=== PATIENT | female | born 1945 | race Caucasian/White ===

== ENCOUNTER 2020-03-02 09:59 | Outpatient (REF) | payer MEDICARE, SELFPAY ==
[2020-03-02 11:36] LABS: Cholesterol 143 mg/dL; HDL Cholesterol 46 mg/dL; LDL Cholesterol Calculated 76 mg/dl; Triglycerides 106 mg/dL
[2020-03-02 12:01] LABS: Free T4 (Free Thyroxine) 1.08 ng/dL (0.71-1.85); Thyroid Stimulating Hormone 4.04 uIU/mL (0.32-4.0)
== END 2020-03-02 10:00 | disposition home or self-care (01) ==
LOC: HO.HMGCLDS 09:59
PROVIDERS: PCP Internal Medicine; Visit Provider Physician Assistant
DX: E78.00 Pure hypercholesterolemia, unspecified (principal); E03.9 Hypothyroidism, unspecified
CPT/HCPCS: 80061; 84439; 84443

== ENCOUNTER → 2020-07-04 13:57 | Outpatient (REF) | payer MEDICARE, SELFPAY ==
--- NOTE | 2020-07-04 14:00 | CA_ITS ---
Transthoracic Echocardiogram Patient (Last, First, Middle): Doris Yepez M Gender: Female Date of : 1945 Age: 74 Procedure Date: 07/04/2020 Procedure Type: Transthoracic Echocardiogram Location: OP Height: 162.56 cm Weight: 86.18 kg BSA: 1.91 m2 Heart Rate: bpm BP: 130 / 90 mmHg Skirt Maker: AYLEEN Referring MD: Lamont Pedersen MD Symptoms: I48.0 PAF, Z95.1 S/P ART BYPASS GRAFT, I25.10 ASCD Study Quality: Fair ECG Rhythm: Sinus Conclusions: - The left ventricular systolic function is normal. The visually estimated ejection fraction is between 55-60%. - Aortic valve sclerosis but no significant stenosis. - There is mild mitral annular calcification. Findings Left Ventricle Normal left ventricular cavity size. There is mildly increased left ventricular wall thickness. The left ventricular systolic function is normal. The visually estimated ejection fraction is between 55-60%. There is no evidence of regional wall motion abnormalities. E/E prime ratio is between 8 and 15 consistent with indeterminate filling pressures. Evidence suggests grade I (mild) diastolic dysfunction. Right Ventricle Normal right ventricular cavity size and systolic function. Atria The left atrium is mildly dilated. The right atrium is normal in size. Aortic Valve There is moderate calcification of the aortic valve. The peak aortic velocity is 2.14 m/s with a calculated peak gradient of 18 mmHg. The mean gradient is 9 mmHg. The aortic valve area is 2.01 cm2. There is no aortic valve regurgitation. No significant aortic stenosis. Mitral Valve There is mild mitral annular calcification. There is mild mitral valve regurgitation. There is no mitral valve stenosis. Pulmonic Valve The pulmonic valve was not well visualized. Tricuspid Valve Normal tricuspid valve structure. There is mild tricuspid valve regurgitation. The pulmonary artery systolic pressure is normal. Great Vessels The aortic annulus, sinuses of valsalva, and asc aorta are normal in size. Venous The inferior vena cava is normal in size and collapses greater than 50% with inspiration. Pericardium/Pleural There is no evidence of pericardial effusion. Prior Study Comparison No significant change compared to prior study dated: 12/25/2018. Measurements 2D Linear Measurements IVSd: 1.08 0.6-0.9/0.6-1.0 cm LVIDd: 4.82 3.9-5.3/4.2-5.9 cm LVIDd Index: 2.52 2.4-3.2/2.2-3.1 cm/m2 LVIDs: 3.15 2.0-3.6 cm LVPWd: 1.10 0.7-1.1 cm Ao Root: 3.30 2.1-3.5 cm LA Diam: 4.90 2.7-3.8/3.0-4.0 cm LAIDs Index: 2.57 1.5-2.3 cm/m2 LV Mass: 240.26 67-162/88-224 g LV Mass Index: 125.79 43-95/49-115 g/m2 LVOT Diam: 2.20 3.0+(-)1.3 cm 2D Systolic Function EF 4C: 55.20 >55% EF 2C: 54.70 >55% EF BiP: 55.90 >55% Mitral Valve MV Pk E: 1.09 MV PK A: 0.82 MV Decel Time: 223.00 E/A: 1.30 E'Lateral: 11.60 E'Medial: 7.72 E/E' Med: 14.10 E/E' Lat: 9.40 PHT: 65.00 MVA PHT: 3.38 Decel Davidson: 4.88 Aortic Valve AoV Pk Wesly: 2.14 AoV Mn Wesly: 1.41 AoV VTI: 0.48 AoV Pk Grad: 18.00 Aov Mn Grad: 9.00 KIKE Cont.VTI: 2.01 LVOT LVOT Pk Wesly: 1.12 LVOT Mn Wesly: 0.76 LVOT VTI: 0.25 LVOT Pk Grad: 5.00 LVOT Mn Grad: 3.00 LVOT Diam: 2.20 LVOT Area: 3.80 Diastolic Function MV Pk E: 1.09 MV Pk A: 0.82 E/A: 1.30 E'Medial: 7.72 E/E' Med: 14.10 E' Laterial: 11.60 E/E' Lat: 9.40 Tricuspid Valve TR Pk Wesly: 2.38 TR Pk Grad: 23.00 RA Press: 3.00 RVSP: 26.00 Great Vessels Aorta Ao Root-2D: 3.30 2.0-3.7 cm Ao Asc: 3.70 2.1-3.4 cm Ao Arch: 3.30 Updated in Other Vendor System with Status of Final Lamont Pedersen MD electronically signed on 07/05/2020 11:37:08 AM with status of Final
== END ==
LOC: HO.CARD 13:57
PROVIDERS: Visit Provider Internal Medicine
DX: I25.10 Atherosclerotic heart disease of native coronary artery without angina pectoris (principal); I48.0 Paroxysmal atrial fibrillation; Z95.1 Presence of aortocoronary bypass graft
CPT/HCPCS: 93306

== ENCOUNTER → 2020-07-25 12:19 | Outpatient (BNVA) | payer MEDICARE, SELFPAY | PROVIDERS: PCP Internal Medicine; Visit Provider Internal Medicine | DX: I25.10 Atherosclerotic heart disease of native coronary artery without angina pectoris (principal); I10 Essential (primary) hypertension; Z95.1 Presence of aortocoronary bypass graft; E78.5 Hyperlipidemia, unspecified | CPT/HCPCS: 93005; 99212 ==

== ENCOUNTER 2020-12-23 08:31 | Outpatient (REF) | payer MEDICARE, SELFPAY ==
[2020-12-23 12:00] LABS: Cholesterol 144 mg/dL; HDL Cholesterol 50 mg/dL; LDL Cholesterol Calculated 72 mg/dl; Triglycerides 111 mg/dL
== END 2020-12-23 08:32 | disposition home or self-care (01) ==
LOC: HO.HMGCLDS 08:31
PROVIDERS: PCP Internal Medicine; Visit Provider Physician Assistant
DX: E78.00 Pure hypercholesterolemia, unspecified (principal); E03.9 Hypothyroidism, unspecified
CPT/HCPCS: 36415; 80061; 84443

== ENCOUNTER 2021-02-06 14:58 | Outpatient (REF) | payer MEDICARE, SELFPAY ==
--- NOTE | ~2021-02-06 | MM_ITS ---
EXAMINATION: MM SCREENING DIGITAL BREAST TOMOSYNTHESIS, BILATERAL CLINICAL INFORMATION: Screening. Asymptomatic. The lifetime risk of breast cancer based on the Tyrer-Cuzick Model is 3%. COMPARISON: Mammography: 05/16/2018, 02/17/2016, 08/16/2015, 01/11/2015 TECHNIQUE: Digital breast tomosynthesis is performed in both the craniocaudal and mediolateral oblique views along with computer-aided detection (CAD). Synthesized 2D images are generated from the tomosynthesis. Additional right CC view is provided. FINDINGS: There are scattered areas of fibroglandular density (ACR BI-RADS breast composition Category b). Parenchymal pattern is similar to prior exams. There is small stable nodular density central outer left breast on CC view. Intramammary node again seen posterior upper outer right breast. There is no architectural abnormality. No dominant mass or abnormal calcifications. The axilla and skin contours are unremarkable. MM/MM tomosynthesis screening BI IMPRESSION: No mammographic evidence of malignancy. ASSESSMENT: BI-RADS 2: Benign RECOMMENDATION: Routine annual mammography screening. This patient's information was entered into a reminder system with a target due date for their next mammogram.
== END 2021-02-06 14:59 | disposition home or self-care (01) ==
LOC: HO.MAMMO 14:58
PROVIDERS: Visit Provider Internal Medicine
DX: Z12.31 Encounter for screening mammogram for malignant neoplasm of breast (principal)
CPT/HCPCS: 77063; 77067

== ENCOUNTER → 2021-08-01 11:02 | Outpatient (BNVA) | payer MEDICARE, SELFPAY | PROVIDERS: PCP Internal Medicine; Visit Provider Internal Medicine | DX: I25.10 Atherosclerotic heart disease of native coronary artery without angina pectoris (principal); I10 Essential (primary) hypertension; I35.9 Nonrheumatic aortic valve disorder, unspecified; I05.9 Rheumatic mitral valve disease, unspecified; E78.5 Hyperlipidemia, unspecified | CPT/HCPCS: 93005; 99212 ==

== ENCOUNTER 2022-02-19 09:53 | Emergency (ER) | payer MEDICARE, SELFPAY ==
--- NOTE | ~2022-02-19 | XR_ITS ---
EXAMINATION: XR CHEST CLINICAL INFORMATION: COVID, shortness of breath. COMPARISON: None TECHNIQUE: Frontal view of the chest was obtained. FINDINGS: The lungs are clear. There is mild elevation of the right hemidiaphragm. The heart and mediastinal structures are unremarkable. Multilevel sternotomy wires are intact. XR/XR chest 1V IMPRESSION: No acute cardiopulmonary process.
[2022-02-19 10:00] VITALS: BP 142/71; PULSE 80; RESP 14; TEMP 36.4; O2SAT 95; BMI 29.9
--- NOTE | 2022-02-19 11:13 | ED.GENADULT ---
HPI - General Adult General Chief complaint: Upper Respiratory Symptoms Stated complaint: COVID + HEADACHE FEVER Time Seen by Provider: 02/19/22 11:12 Source: patient Mode of arrival: ambulatory Limitations: no limitations History of Present Illness HPI narrative: Patient is a 76 year old assigned female at with a history of HTN presenting to the emergency department today feeling generally unwell post a COVID-19 infection. Patient states that she began having COVID-19 symptoms over 13 days ago and had a positive test. Patient states that she still feels generally unwell and so she thought she should come be evaluated. Patient states that she doesn't have any one specific complaint. Patient denies any dizziness, lightheadedness, abdominal pain, nausea, vomiting, fever, chills, blurry vision, double vision, loss of vision, chest pain, difficulty breathing, shortness of breath, back pain, night sweats, pain with urination, increased urinary frequency, increased urinary urgency, blood in her urine or stool, syncope or a near syncopal episode, recent trauma or falls, bowel incontinence, bladder incontinence, bowel retention, bladder retention, or any other complaints at this time. Related Data Home Medications Medication Instructions Recorded Confirmed aspirin 81 mg tablet,delayed 81 mg PO DAILY 07/25/20 08/01/21 release cholecalciferol (vitamin D3) 50 50 mcg PO DAILY 07/25/20 08/01/21 mcg (2,000 unit) capsule levothyroxine 75 mcg tablet 75 mcg PO DAILY 07/25/20 08/01/21 lisinopril 40 mg tablet 40 mg PO DAILY 07/25/20 08/01/21 metoprolol succinate 50 mg 50 mg PO DAILY 07/25/20 08/01/21 tablet,extended release 24 hr turmeric 400 mg capsule mg PO 07/25/20 08/01/21 Previous Rx's Medication Instructions Recorded amlodipine 5 mg tablet 5 mg PO DAILY #90 tabs 11/17/21 rosuvastatin 40 mg tablet 40 mg PO DAILY 90 days #90 tabs 12/26/21 doxycycline hyclate 100 mg tablet 100 mg PO BID 7 days #14 tabs 02/19/22 prednisone 20 mg tablet 20 mg PO DAILY 12 days #26 tabs 02/19/22 Allergies Allergy/AdvReac Type Severity Reaction Status Date / Time No Known Allergies Allergy Verified 04/19/22 11:16 Review of Systems Constitutional: Constitutional: Reports no additional constitutional complaints, Denies chills, Denies fever(s) and Denies night sweats Eyes: Eyes: Reports no additional eye complaints, Denies blurry vision, Denies change in vision, Denies diplopia, Denies eye discharge, Denies loss of vision and Denies eye pain ENT: Denies dizziness Cardiovascular: Cardiovascular: Reports no additional cardiovascular complaints, Denies chest pain, Denies lightheadedness, Denies Loss of Consciousness and Denies dyspnea Respiratory: Respiratory: Reports no additional respiratory complaints and Denies dyspnea Gastrointestinal: Gastrointestinal: Reports no additional gastrointestinal complaints, Denies abdominal pain, Denies melena, Denies hematochezia, Denies change in bowel habits and Denies change in stool character Genitourinary: Genitourinary: Denies hematuria, Denies urinary frequency, Denies dysuria, Denies urinary incontinence, Denies urinary hesitancy and Denies urinary urgency Musculoskeletal: Musculoskeletal: Reports no additional musculoskeletal complaints, Denies numbness and Denies tingling Neurologic: Denies dizziness, Denies loss of vision, Denies numbness and Denies tingling Psychiatric: Psychiatric: Reports no additional psychiatric complaints Endocrine: Endocrine: Reports no additional endocrine complaints Hematologic/Lymphatic: Hematologic/Lymphatic: Reports no additional hematologic/lymphatic complaints Allergic/Immunologic: Allergic/Immunologic: Reports no additional allergic/immunologic complaints [facility] Past Medical History Attestation statement: The following information was validated with the patient. Source: old records reviewed Medical History Atherosclerotic cardiovascular disease Essential hypertension Other and unspecified hyperlipidemia Surgical History History of coronary artery bypass graft (~10/2018) Family History Family History Father No problems noted. Mother No problems noted. Social History Social History Patient Tobacco Use Status: Never used Tobacco Smoked in Last 30 Days: No Advance Directives: No Advance Directives Information Provided: Yes Physical Exam ED Vital Signs: Vital Signs - 24 hr 02/19/22 10:00 Temperature 97.5 F Pulse Rate 80 Respiratory Rate 14 Blood Pressure 142/71 H Pulse Oximetry 95 Oxygen Delivery Method Room Air BMI result Body Mass Index 29.9 Const General: cooperative, no acute distress, alert and awake Nutritional Appearance: well nourished Orientation/consciousness: patient oriented x3 Limitations: no limitations HENMT Head: Yes normal to inspection and Yes atraumatic Ears: hearing grossly normal bilaterally and external ears normal General nose exam: Normal external nose present, no nasal discharge noted and no epistaxis Face and sinus: Yes normal facial exam, No abrasion and No laceration Mouth: Normal oral and palatal mucosa present, no drooling and no muffled voice Eyes General: appearance normal, both eyes and all related structures Periorbital: periorbital findings normal Eyelids: Yes eyelids normal Conjunctivae: conjunctivae normal Pupils: Equal, round and reactive pupils present EOM: EOMs intact bilaterally Neck Neck: Yes normal visual inspection, Yes full ROM and Yes no lymphadenopathy Chest Chest palpation & inspection: normal inspection of the chest Resp Effort & Inspection: normal respiratory effort and able to speak in complete sentences Auscultation: clear to auscultation bilaterally Cardio Rate: regular rate Rhythm: regular rhythm GI Inspection: Yes normal to inspection Neuro General: patient oriented x3 and moves all extremities Cranial nerves: Yes Equal, round and reactive pupils present Cognition (Neuro): normal cognition Motor exam (neuro): 5/5 motor strength present throughout Sensory Exam: Normal double simultaneous stimulation for sensation Coordination: [id number] test normal Extrem General: Yes normal to inspection, Yes full ROM and Yes capillary refill normal Psych Appearance: grossly normal Mental Status: mental status grossly normal Affect: normal affect Attitude: cooperative Thought process: Normal thought process present Thought content: Normal thought content present Insight: Good insight present (Psych) Medical Decision Making [facility] Narrative Medical decision making narrative: Patient is a 76 year old assigned female at with a history of HTN presenting to the emergency department today feeling generally unwell. Patient's physical exam was unremarkable. Patient's chest x-ray showed no acute process. I explained my physical exam findings as well as all test results to the patient. I answered all questions asked by the patient. I stressed the importance of the patient taking her medication as prescribed. I stressed the importance of the patient following up with her primary care provider. I stressed the importance of the patient returning to the emergency department immediately if her symptoms were to worsen or if she were to develop any dizziness, shortness of breath, difficulty breathing, chest pain, blurry vision, loss of vision, nausea, vomiting, abdominal pain, fever, chills, back pain, or any other complaints. Patient verbalized agreement and understanding with this treatment plan and discharge. Medical Records Medical records reviewed: Yes I reviewed the patient's medical records. Imaging Data Chest x-ray: Attestation: I personally reviewed and interpreted this imaging study as follows: My impression: No acute process. Radiologist's impression: EXAMINATION: XR CHEST CLINICAL INFORMATION: COVID, shortness of breath. COMPARISON: None TECHNIQUE: Frontal view of the chest was obtained. FINDINGS: The lungs are clear. There is mild elevation of the right hemidiaphragm. The heart and mediastinal structures are unremarkable. Multilevel sternotomy wires are intact. XR/XR chest 1V IMPRESSION: No acute cardiopulmonary process. Dictated By: Guevara Campa MD Signed By: Electronically signed by Guevara Campa MD 02/19/22 1108 Discharge Plan Discharge Clinical Impression: Upper respiratory infection Patient Disposition: Home, Self-Care Additional Instructions: Follow up with your primary care provider. Return to the emergency department immediately if your symptoms worsen or if you develop any dizziness, shortness of breath, difficulty breathing, chest pain, blurry vision, loss of vision, nausea, vomiting, abdominal pain, fever, chills, back pain, or any other complaints. Prescriptions: New prednisone 20 mg tablet 20 mg PO DAILY 12 Days Qty: 26 0RF Rx Instructions: Take 3 tablets for 5 days THEN; Take 2 tablets for 4 days THEN; Take 1 tablet for 3 days doxycycline hyclate 100 mg tablet 100 mg PO BID 7 Days Qty: 14 0RF No Action amlodipine 5 mg tablet 5 mg PO DAILY Qty: 90 3RF rosuvastatin 40 mg tablet 40 mg PO DAILY 90 Days Qty: 90 3RF lisinopril 40 mg tablet 40 mg PO DAILY levothyroxine 75 mcg tablet 75 mcg PO DAILY metoprolol succinate 50 mg tablet extended release 24 hr 50 mg PO DAILY aspirin 81 mg tablet,delayed release (DR/EC) 81 mg PO DAILY cholecalciferol (vitamin D3) 50 mcg (2,000 unit) capsule 50 mcg PO DAILY turmeric 400 mg capsule PO Referrals: Rainer Costa MD [Primary Care Provider] - Discharge Date/Time: 02/19/22 12:35 Print Language: French
--- NOTE | 2022-02-19 12:35 | PC.NURSE ---
patient discharged by provider . patient aware of plan of care .
== END 2022-02-19 12:35 | disposition home or self-care (01) ==
PROVIDERS: Emergency Provider Emergency Medicine; PCP Internal Medicine
DX: J06.9 Acute upper respiratory infection, unspecified (principal); E78.5 Hyperlipidemia, unspecified; I10 Essential (primary) hypertension; Z79.02 Long term (current) use of antithrombotics/antiplatelets; Z79.899 Other long term (current) drug therapy
CPT/HCPCS: 71045; 99283; 99284

== ENCOUNTER → 2022-08-07 10:50 | Outpatient (BNVA) | payer MEDICARE, SELFPAY | PROVIDERS: PCP Internal Medicine; Referring Provider Internal Medicine; Visit Provider Internal Medicine | DX: I25.10 Atherosclerotic heart disease of native coronary artery without angina pectoris (principal); I10 Essential (primary) hypertension; I35.9 Nonrheumatic aortic valve disorder, unspecified; I05.9 Rheumatic mitral valve disease, unspecified; E78.5 Hyperlipidemia, unspecified | CPT/HCPCS: 93005; 99212 ==

== ENCOUNTER 2023-02-27 08:59 | Outpatient (REF) | payer MEDICARE, SELFPAY ==
[2023-02-27 11:20] LABS: MANUAL DIFF FLAG NO
[2023-02-27 11:55] LABS: Alanine Aminotransferase 14 U/L (0-31); Alkaline Phosphatase 76 U/L (39-117); Anion Gap 10 (12-20); Aspartate Amino Transferase 19 U/L (5-31); Bilirubin Total 0.6 mg/dL (0.0-1.0); Blood Urea Nitrogen 10 mg/dL (9-16); Calcium 9.1 mg/dL (8.4-10.2); Carbon Dioxide 25 mmol/L (22-29); Chloride 109 mmol/L (96-108); Cholesterol 159 mg/dL (<200); Estimated Glomerular Filt Rate > 60; Glucose Random 93 mg/dL (60-115); HDL Cholesterol 49 mg/dL (>40); LDL Cholesterol Calculated 92 mg/dL (<100); Sodium 140 mmol/L (135-145); Total Protein 7.1 g/dL (6.5-8.0); Triglycerides 90 mg/dL (<150)
[2023-02-27 12:03] LABS: Basophils Absolute Auto 0.1 X10*3/uL (0.0-0.2); Eosinophils Absolute Auto 0.1 X10*3/uL (0.0-0.4); Eosinophils Percent Auto 2.1 % (0-4); Hematocrit 43.3 % (37.0-47.0); Hemoglobin 13.7 g/dl (12.0-16.0); Imm Gran Abs Auto 0.03 X10*3/uL (0.00-0.03); Imm Gran Pct Auto 0.4 % (0.0-0.4); Lymphocytes Absolute Auto 2.3 X10*3/uL (1.2-4.9); Lymphocytes Percent Auto 34.6 % (20-40); Mean Corpuscular HGB Conc 31.6 g/dl (31.0-35.0); Mean Corpuscular Hemoglobin 28.8 pg (27.0-33.0); Mean Corpuscular Volume 91.2 fL (80.0-98.0); Mean Platelet Volume 10.6 fL (9.4-12.3); Monocytes Absolute Auto 0.7 X10*3/uL (0.1-1.2); Monocytes Percent Auto 9.7 % (2-11); Neutrophils Absolute Auto 3.5 x10*3/uL (2.0-8.3); Neutrophils Percent Auto 52.2 % (45-73); Platelet Count 284 X10*3/uL (160-400); Red Blood Count 4.75 X10*6/uL (4.20-5.50); Red Cell Distribution Width 12.8 % (11.0-16.0); White Blood Count 6.7 X10*3/uL (4.8-10.8)
== END 2023-02-27 09:00 | disposition home or self-care (01) ==
LOC: HO.HMGCLDS 08:59
PROVIDERS: PCP Internal Medicine; Visit Provider Physician Assistant
DX: I25.119 Atherosclerotic heart disease of native coronary artery with unspecified angina pectoris (principal)
CPT/HCPCS: 36415; 80053; 80061; 85025

== ENCOUNTER 2023-08-08 09:44 | Outpatient (AMB) | payer MEDICARE, SELFPAY ==
--- NOTE | 2023-08-08 10:00 | A.OFFVIS_ITS ---
Vital Signs 08/08/23 10:01 Height 5 ft 5 in Weight 194 lb 0.108 oz BMI 32.3 BP 138/70 Blood Pressure Location Lt brachial Position Sitting Pulse 65 Pulse Source Monitor Pulse Oximetry (%) 98 Oxygen Delivery Method Room Air Intake Visit Reasons: 1 yr f/up Allergies No Known Allergies Allergy (Verified 08/07/22 11:01) Medication List - Last Reconciled 08/08/23 by Lamont Pedersen MD amlodipine 5 mg PO DAILY aspirin 81 mg PO DAILY cholecalciferol (vitamin D3) 50 mcg PO DAILY levothyroxine 75 mcg PO DAILY lisinopril 40 mg PO DAILY metoprolol succinate ER 50 mg PO DAILY rosuvastatin 40 mg PO DAILY 90 days turmeric mg PO HPI Comments Details: Doris returns for follow-up regarding coronary disease and coronary artery bypass surgery. Overall, she is doing good. No complaints like angina or shortness of breath or in fact anything cardiac sounding. Getting along fine. [facility] Medical History Atherosclerotic cardiovascular disease Essential hypertension Other and unspecified hyperlipidemia Surgical History History of coronary artery bypass graft (~10/2018) Family History Father No problems noted. Mother No problems noted. Social History (Updated 08/07/22 @ 11:03 by Thu Le) Alcohol intake: current Alcohol intake frequency: holidays/special occasions only Alcohol type: wine Patient Tobacco Use Status: Never used Tobacco Review of Systems Const Denies weakness ENT Denies dizziness Card Denies chest pain, Denies chest pain with activity, Denies syncope, Denies rapid heart rate, Denies pedal edema, Denies edema, Denies leg edema, Denies lightheadedness, Denies palpitations, Denies dyspnea, Denies dyspnea on exertion and Denies orthopnea Resp Denies cough, Denies dyspnea and Denies dyspnea on exertion GI Denies hematochezia and Denies change in stool character Musc Denies abnormal gait, Denies muscle cramps, Denies muscle weakness, Denies numbness, Denies radiating pain into limb and Denies tingling Neuro Denies abnormal gait, Denies dizziness, Denies syncope, Denies numbness, Denies tingling and Denies weakness Endo Denies palpitations Physical Exam Vital Signs: Last Vital Signs Pulse 65 08/08/23 10:01 BP 138/70 08/08/23 10:01 Pulse Ox 98 08/08/23 10:01 Oxygen Delivery Method Room Air 08/08/23 10:01 BMI result Body Mass Index 32.3 Const General: comfortable and no acute distress Orientation/consciousness: patient oriented x3 HEENT Other: Unremarkable Head: Yes normal to inspection Neck Neck: Yes normal visual inspection Chest Chest palpation & inspection: normal inspection of the chest Resp Auscultation: clear to auscultation bilaterally Cardio Palpation: normal PMI Heart sounds: S1 normal heart sound present, S2 normal heart sound present, no gallops, no murmurs and no rubs GI Palpation (GI): Soft to palpation Back/Spine/Pelvis Other: unremarkable Skin General skin exam: no rashes or lesions noted Neuro General: patient oriented x3 Extrem General: Yes normal to inspection Psych Mental Status: mental status grossly normal Office Procedures EKG Details: EKG shows sinus rhythm at 65/Min; IN prolongation to 212 millisecond; [place]. [id number], Complete Assessment & Plan Assessment & Plan (1) Atherosclerotic cardiovascular disease: Code(s): I25.10 - Atherosclerotic heart disease of [place] coronary artery without angina pectoris Category: Medical Plan: Continue aspirin, beta-blockers and high-dose statins. (2) Essential hypertension: Code(s): I10 - Essential (primary) hypertension Category: Medical Plan: Listed to be on metoprolol, lisinopril, amlodipine. Stable. (3) Other and unspecified hyperlipidemia: Code(s): E78.5 - Hyperlipidemia, unspecified Category: Medical Plan: Last LDL 92 mg/dL. Slightly higher than before but she is also gained some weight. We can recheck. Currently on Rosuvastatin. Possibly may add Zetia based on the levels. (4) Aortic valve calcification: Code(s): I35.9 - Nonrheumatic aortic valve disorder, unspecified Category: Medical Plan: She does have aortic valve sclerosis. There is risk of developing aortic stenosis in the future. Echocardiogram in the future as needed. (5) Mitral annular calcification: Code(s): I05.9 - Rheumatic mitral valve disease, unspecified Category: Medical Plan: Mild mitral annular calcification on the last echocardiogram with mild regurgitation but no stenosis. Can be followed with echocardiograms as needed. Plan Follow-up in 1 year. She will call us with concerns. Orders: Orders Lipid Panel Today E78.5 - Hyperlipidemia, unspecified Liver Panel Today E78.5 - Hyperlipidemia, unspecified, I25.10 - Atherosclerotic heart disease of [place] coronary artery without angina pectoris Coding Level of Care Code Est Pt Level 4 (39211) Diagnoses Atherosclerotic cardiovascular disease I25.10 Essential hypertension I10 Other and unspecified hyperlipidemia E78.5 Aortic valve calcification I35.9 Mitral annular calcification I05.9 CPT Codes EKG - CPT: 01346-[id number], Complete ([id number])
[2023-08-08 10:01] VITALS: BP 138/70; PULSE 65; O2SAT 98; BMI 32.3
== END 2023-08-08 10:18 | disposition home or self-care (01) ==
PROVIDERS: PCP Internal Medicine; Visit Provider Internal Medicine
DX: I25.10 Atherosclerotic heart disease of native coronary artery without angina pectoris (principal); I10 Essential (primary) hypertension; E78.5 Hyperlipidemia, unspecified; I35.9 Nonrheumatic aortic valve disorder, unspecified; I05.9 Rheumatic mitral valve disease, unspecified
CPT/HCPCS: 93010; 99214

== ENCOUNTER → 2023-08-08 09:44 | Outpatient (BNVA) | payer MEDICARE, SELFPAY | PROVIDERS: Visit Provider Internal Medicine | DX: I25.10 Atherosclerotic heart disease of native coronary artery without angina pectoris (principal); I10 Essential (primary) hypertension; E78.5 Hyperlipidemia, unspecified; I35.9 Nonrheumatic aortic valve disorder, unspecified; I05.9 Rheumatic mitral valve disease, unspecified; Z79.82 Long term (current) use of aspirin; Z79.899 Other long term (current) drug therapy | CPT/HCPCS: 93005; 99212 ==

== ENCOUNTER 2023-12-23 08:24 | Outpatient (REF) | payer MEDICARE, SELFPAY ==
[2023-12-23 10:49] LABS: Alanine Aminotransferase 19 U/L (0-31); Alkaline Phosphatase 69 U/L (39-117); Aspartate Amino Transferase 17 U/L (5-31); Bilirubin Direct 0.2 mg/dL (0.0-0.5); Bilirubin Total 0.6 mg/dL (0.0-1.0); Cholesterol 156 mg/dL (<200); HDL Cholesterol 52 mg/dL (>40); LDL Cholesterol Calculated 88 mg/dL (<100); Total Protein 7.1 g/dL (6.5-8.0); Triglycerides 80 mg/dL (<150)
== END 2023-12-23 08:25 | disposition home or self-care (01) ==
LOC: HO.HMGCLDS 08:24
PROVIDERS: PCP Internal Medicine; Visit Provider Internal Medicine
DX: E78.5 Hyperlipidemia, unspecified (principal); I25.10 Atherosclerotic heart disease of native coronary artery without angina pectoris
CPT/HCPCS: 36415; 80061; 80076

== ENCOUNTER 2024-04-20 13:40 | Outpatient (AMB) | payer MEDICARE, SELFPAY ==
[2024-04-20 13:52] VITALS: BP 110/62; PULSE 71; BMI 32.1
--- NOTE | 2024-04-20 13:52 | A.OFFVIS_ITS ---
Vital Signs 04/20/24 13:52 Height 5 ft 5 in Weight 193 lb 1.999 oz BMI 32.1 BP 110/62 Blood Pressure Location Lt brachial Position Sitting Pulse 71 Pulse Source Monitor Intake Visit Reasons: ABN Ekg. Ok per [place] [employer] Chair Required: No Accompanied by: Self / Same As Patient Allergies No Known Allergies Allergy (Verified 04/20/24 14:20) Medication List - Last Reconciled 04/20/24 by Alexy Georges NP amlodipine 10 mg PO DAILY aspirin 81 mg PO DAILY cholecalciferol (vitamin D3) 50 mcg PO DAILY ezetimibe (Zetia) 10 mg PO DAILY levothyroxine 75 mcg PO DAILY lisinopril 40 mg PO DAILY metoprolol succinate ER 50 mg PO DAILY rosuvastatin 40 mg PO DAILY 90 days turmeric mg PO HPI Comments Details: This is a 78-year-old female with a history of hypertension, coronary artery disease, hyperlipidemia and coronary artery bypass in 2019. She was recently evaluated by her new primary care physician, who noted an abnormal EKG with T- wave inversions in V3. Compared to prior office EKGs, there were no significant changes. However due to her medical history and complaints of chest pain at her visit, she was brought in for an earlier appointment. The patient describes her chest pain as a pressure in the midsternum, rated 5 to 6/10 in intensity, lasting a few seconds. 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 Additionally, the patient reports intermittent shortness of breath with exertion as well as with rest, which is not associated with the chest pain. Patient is teary today, having recently experienced the loss of her partner. Otherwise, she denies any dizziness, palpitations, presyncope, or syncope. [facility] Medical History Atypical chest pain Other and unspecified hyperlipidemia Essential hypertension Atherosclerotic cardiovascular disease Surgical History History of coronary artery bypass graft (~10/2018) Family History Father No problems noted. Mother No problems noted. Social History Alcohol intake: current Alcohol intake frequency: holidays/special occasions only Alcohol type: wine Patient Tobacco Use Status: Never used Tobacco Review of Systems Const Denies chills, Denies fatigue, Denies fever(s), Denies frequent falls, Denies weakness, Denies weight gain and Denies weight loss ENT Denies dizziness Card Denies chest pain, Denies leg edema, Denies lightheadedness, Denies palpitations, Denies dyspnea and Denies dyspnea on exertion Resp Denies cough, Denies dyspnea and Denies dyspnea on exertion GI Denies hematochezia Musc Denies abnormal gait, Denies muscle weakness, Denies numbness, Denies radiating pain into limb and Denies tingling Neuro Denies abnormal gait, Denies dizziness, Denies frequent falls, Denies numbness, Denies tingling and Denies weakness Endo Denies fatigue and Denies palpitations Physical Exam Vital Signs: Last Vital Signs Pulse 71 04/20/24 13:52 BP 110/62 04/20/24 13:52 BMI result Body Mass Index 32.1 Const General: cooperative, healthy appearing, comfortable and no acute distress Orientation/consciousness: patient oriented x3 HEENT Head: Yes normal to inspection Neck Neck: Yes normal visual inspection, Yes trachea midline and Yes supple Chest Chest palpation & inspection: normal inspection of the chest Resp Effort & Inspection: normal respiratory effort Auscultation: clear to auscultation bilaterally, no crackles, no rales, no rhonchi and no wheezes Cardio Jugular venous distension: no JVD Palpation: normal PMI Rate: regular rate Rhythm: regular rhythm Heart sounds: S1 normal heart sound present, S2 normal heart sound present, no click, no gallops, no murmurs and no rubs Peripheral pulses: Peripheral pulses 2+ throughout GI Inspection: Yes normal to inspection Palpation (GI): Soft to palpation Auscultation: normal bowel sounds Skin General skin exam: no rashes or lesions noted Neuro General: patient oriented x3 Extrem General: Yes normal to inspection, No no pedal edema and No calf tenderness Psych Appearance: grossly normal Mental Status: mental status grossly normal Speech and movement: Normal speech and movement present Affect: Sad affect present Office Procedures EKG Details: EKG today showed normal sinus rhythm at 71 beats per minute, right axis deviation, nonspecific T-wave abnormalities, [place], [place]. [id number], Complete Assessment & Plan Assessment & Plan (1) Atypical chest pain: Code(s): R07.89 - Other chest pain Category: Medical Plan: Given her history of CAD and CABG, concerning. We will evaluate the patient for any ischemic changes with myocardial perfusion study. EKG today is as noted above. (2) Atherosclerotic cardiovascular disease: Code(s): I25.10 - Atherosclerotic heart disease of [place] coronary artery without angina pectoris Category: Medical Plan: Continue aspirin, beta-blockers, high-dose statins and Zetia Discussed heart healthy diet, exercise, weight management, and stress medication strategies. (3) Essential hypertension: Code(s): I10 - Essential (primary) hypertension Category: Medical Plan: Patient states her PCP recently increased amlodipine to 10 mg daily for elevated blood pressures. Blood pressure today is well managed. Continue on amlodipine, lisinopril, metoprolol. (4) Other and unspecified hyperlipidemia: Code(s): E78.5 - Hyperlipidemia, unspecified Category: Medical Plan: Last LDL 88 mg/dL. Currently on Rosuvastatin and Zetia. We will repeat labs. (5) Aortic valve calcification: Code(s): I35.9 - Nonrheumatic aortic valve disorder, unspecified Category: Medical Plan: She does have aortic valve sclerosis. There is risk of developing aortic stenosis in the future. We will obtain echocardiogram. (6) Mitral annular calcification: Code(s): I05.9 - Rheumatic mitral valve disease, unspecified Category: Medical Plan: Mild mitral annular calcification on the last echocardiogram with mild regurgitation but no stenosis. Plan Patient will follow-up in 6 months. In the interim, advised patient to call the office or seek ER care in case of exertional chest pain and shortness of breath not resolving with rest, dizziness, palpitations, presyncope or syncope. This note was generated using voice recognition software. While every effort has been made to ensure accuracy and proper sprayer automatic spray machine, there may be occasional errors that could affect the content or meaning of the described symptoms. Orders: Orders NM cardiolite stress test Today Alexy Georges NP R07.89 - Other chest pain Liver Panel Today Alexy Georges NP E78.5 - Hyperlipidemia, unspecified CA lexiscan stress w mei Today Alexy Georges NP R07.89 - Other chest pain AMB EKG-In Office Today Alexy Georges NP R07.89 - Other chest pain CA echo transthoracic complete Today Alexy Georges NP I05.9 - Rheumatic mitral valve disease, unspecified, I35.9 - Nonrheumatic aortic valve disorder, unspecified Lipid Panel Today Alexy Georges NP E78.5 - Hyperlipidemia, unspecified Medications: Changed From amlodipine 5 mg PO DAILY 90 tabs 3RF To amlodipine 10 mg PO DAILY Angelic Luque NP Coding Level of Care Code Est Pt Level 4 (08036) Diagnoses Atypical chest pain R07.89 Atherosclerotic cardiovascular disease I25.10 Essential hypertension I10 Other and unspecified hyperlipidemia E78.5 Aortic valve calcification I35.9 Mitral annular calcification I05.9 CPT Codes EKG - CPT: 44980-[id number], Complete ([id number]) Time Spent (min) 31 Comment Time spent in reviewing the chart, test results, assessment, counseling and documentation.
== END 2024-04-20 14:26 | disposition home or self-care (01) ==
PROVIDERS: PCP Internal Medicine
DX: R07.89 Other chest pain (principal); I25.10 Atherosclerotic heart disease of native coronary artery without angina pectoris; I10 Essential (primary) hypertension; E78.5 Hyperlipidemia, unspecified; I35.9 Nonrheumatic aortic valve disorder, unspecified; I05.9 Rheumatic mitral valve disease, unspecified
CPT/HCPCS: 93010; 99214

== ENCOUNTER → 2024-04-20 13:40 | Outpatient (BNVA) | payer MEDICARE, SELFPAY | PROVIDERS: PCP Internal Medicine | DX: R07.89 Other chest pain (principal); I25.10 Atherosclerotic heart disease of native coronary artery without angina pectoris; I10 Essential (primary) hypertension; I35.9 Nonrheumatic aortic valve disorder, unspecified; I05.9 Rheumatic mitral valve disease, unspecified; E78.5 Hyperlipidemia, unspecified; R94.31 Abnormal electrocardiogram [ECG] [EKG] | CPT/HCPCS: 93005; 99212 ==

== ENCOUNTER 2024-04-21 07:28 | Outpatient (REF) | payer MEDICARE, SELFPAY ==
[2024-04-21 10:15] LABS: Alanine Aminotransferase 45 U/L (0-31); Albumin Level 3.9 g/dL (3.5-5.0); Alkaline Phosphatase 72 U/L (39-117); Aspartate Amino Transferase 48 U/L (5-31); Bilirubin Direct 0.3 mg/dL (0.0-0.5); Bilirubin Total 0.6 mg/dL (0.0-1.0); Cholesterol 128 mg/dL (<200); HDL Cholesterol 50 mg/dL (>40); LDL Cholesterol Calculated 57 mg/dL (<100); Triglycerides 105 mg/dL (<150)
== END 2024-04-21 07:29 | disposition home or self-care (01) ==
LOC: HO.HMGCLDS 07:28
DX: E78.5 Hyperlipidemia, unspecified (principal)
CPT/HCPCS: 36415; 80061; 80076

== ENCOUNTER → 2024-04-28 08:00 | Outpatient (REF) | payer MEDICARE, SELFPAY ==
--- NOTE | 2024-04-28 08:02 | CA_ITS ---
Transthoracic Echocardiogram Patient (Last, First, Middle): Doris Yepez M Gender: Female Date of : 1945 Age: 78 Procedure Date: 04/28/2024 Procedure Type: Transthoracic Echocardiogram Location: OP Height: 165.1 cm Weight: 87.54 kg BSA: 1.95 m2 Heart Rate: 73 bpm BP: 110 / 63 mmHg Agriculture Instructor: SB Referring MD: Alexy Georges NP Symptoms: I35.9 - Nonrheumatic aortic valve disorder, unspecified Study Quality: Adequate w contrast ECG Rhythm: Sinus Conclusions: - The left ventricular systolic function is normal. The calculated ejection fraction is 64% by biplane method. - There is severe calcification of the aortic valve. There is mild aortic valve stenosis. - There is moderate mitral annular calcification. Findings Procedure Information Contrast agent, definity, is being given per protocol without apparent complications. Left Ventricle Normal left ventricular cavity size. There is normal left ventricular wall thickness. The left ventricular systolic function is normal. The calculated ejection fraction is 64% by biplane method. There is no evidence of regional wall motion abnormalities. Diastolic function is indeterminate on the basis of available data. Right Ventricle Normal right ventricular cavity size. There is mildly decreased right ventricular systolic function. Atria The left atrium is mildly dilated. The right atrium is normal in size. Aortic Valve There is severe calcification of the aortic valve. There is mild aortic valve stenosis. There is trace (trivial) aortic valve regurgitation. Mitral Valve There is moderate mitral annular calcification. There is trace mitral valve regurgitation. There is no mitral valve stenosis. Pulmonic Valve The pulmonic valve is likely normal. Tricuspid Valve There is mild tricuspid valve regurgitation. There is no evidence of pulmonary hypertension. Great Vessels The asc aorta and aortic arch are normal in size. Venous The inferior vena cava is normal in size and collapses greater than 50% with inspiration. Pericardium/Pleural There is no evidence of pericardial effusion. Prior Study Comparison Changes noted compared to prior study dated: 07/04/2020. Mild aortic stenosis noted. Measurements 2D Linear Measurements IVSd: 0.90 0.6-0.9/0.6-1.0 cm LVIDd: 5.09 3.9-5.3/4.2-5.9 cm LVIDd Index: 2.61 2.4-3.2/2.2-3.1 cm/m2 LVIDs: 3.51 2.0-3.6 cm LVPWd: 0.72 0.7-1.1 cm LA Diam: 4.50 2.7-3.8/3.0-4.0 cm LAIDs Index: 2.31 1.5-2.3 cm/m2 LV Mass: 176.35 67-162/88-224 g LV Mass Index: 90.43 43-95/49-115 g/m2 LVOT Diam: 2.20 3.0+(-)1.3 cm 2D Systolic Function EF 4C: 61.30 >55% EF 2C: 67.40 >55% EF BiP: 64.00 >55% Mitral Valve MV VTI: 0.31 MV Pk Wes[place]: 1.04 MV Mn [place]: 0.61 MV Pk Grad: 4.00 MV Mn Grad: 2.00 MV Pk E: 1.12 MV PK A: 0.79 MV Decel Time: 211.00 E/A: 1.40 E'Lateral: 12.20 E'Medial: 5.33 E/E' Med: 21.00 E/E' Lat: 9.20 PHT: 62.00 MVA PHT: 3.55 MVA Continuity: 2.82 Decel [place]: 5.31 Aortic Valve AoV Pk [place]: 2.50 AoV Mn [place]: 1.48 AoV VTI: 0.47 AoV Pk Grad: 25.00 Aov Mn Grad: 10.00 KIKE Cont.VTI: 1.52 LVOT LVOT Pk [place]: 1.05 LVOT Mn [place]: 0.70 LVOT VTI: 0.23 LVOT Pk Grad: 4.00 LVOT Mn Grad: 2.00 LVOT Diam: 2.20 LVOT Area: 3.80 Diastolic Function MV Pk E: 1.12 MV Pk A: 0.79 E/A: 1.40 E'Medial: 5.33 E/E' Med: 21.00 E' Laterial: 12.20 E/E' Lat: 9.20 Right Ventricle TAPSE (mm): 14.70 TVS' [place]: 7.94 Tricuspid Valve TR Pk [place]: 2.63 TR Pk Grad: 28.00 RA Press: 3.00 RVSP: 31.00 Great Vessels Aorta Sinus of Valsalva: 3.20 2.0-3.5 cm Ao Asc: 3.60 2.1-3.4 cm Ao Arch: 3.40 Pulmonary Valve PV Pk [place]: 0.87 Peak PV Grad: 3.00 Updated in Other Vendor System with Status of Final Lamont Pedersen MD electronically signed on 04/28/2024 12:40:42 PM with status of Final
== END ==
LOC: HO.CARD 08:00
DX: I35.9 Nonrheumatic aortic valve disorder, unspecified (principal); I05.9 Rheumatic mitral valve disease, unspecified
CPT/HCPCS: 93306; Q9957

== ENCOUNTER → 2024-04-28 08:02 | Outpatient (BNV) | payer MEDICARE, SELFPAY | PROVIDERS: Visit Provider Internal Medicine | DX: I35.2 Nonrheumatic aortic (valve) stenosis with insufficiency (principal); I35.8 Other nonrheumatic aortic valve disorders; I36.1 Nonrheumatic tricuspid (valve) insufficiency | CPT/HCPCS: 93306 ==

== ENCOUNTER → 2024-06-10 09:04 | Outpatient (REF) | payer MEDICARE, SELFPAY ==
--- NOTE | 2024-06-10 09:09 | CA_ITS ---
Acquisition Time: 2024-06-10 09:34:51 Total Exercise Time: 00:02:00 Test Indications: CP Medications: SEE H&P Protocol: LEXISCAN Max HR: 100 BPM 69% of Pred: 143 BPM Max BP: 144/78 mmHG Max Work Load: 1.0 METS Pharmacological stress test with Lexiscan while pt marches in the chair, with reports of SOB and abdminal discomfort, without any arrythmias, with normotensive response to injection. Nondiagnostic EKG for ischemia. In recovery, pt treated with IVP Aminophylline 75 mg to reverse Lexiscan, after which pt feeling back to baseline. Nuclear images pending. Test reviewed with Dr. Iyer. Referred By: Alexy Georges Electronically Signed By: Alexy Georges
--- OUTSIDE RECORDS SUMMARY | 2024-06-10 09:56 | XMS_ITS | Data Portability ---
Author Organization [facility] Service Address [address] [place] [address] Assessment Encounter Date Assessment Date Assessment LastModified by Organization Details LastModified Time 10/06/2021 10/06/2021 The patient denies recent falls or recurrent falls. Denies instability, weakness, abnormal gait, or difficulties with movement. The patient wears correct, supportive shoes and is not otherwise severely visually impaired. The patient is full weight bearing and if using the assistance of a cane or walker feels supported and stable with the use of such devices. All medical conditions have been taken into account that may pose a risk for the patient for falls. Home wayne, carpets and/or rugs do not pose a challenge for the patient. The patient has been educated about the use of vitamin D supplementation for bone health and prevention of hypotensive episodes that may increase risk for fall. All question and concerns were answered to the patient's satisfaction. [email or web address] Not available 10/06/2021 15:04:57 02/15/2023 02/15/2023 The patient denies recent falls or recurrent falls. Denies instability, weakness, abnormal gait, or difficulties with movement. The patient wears correct, supportive shoes and is not otherwise severely visually impaired. The patient is full weight bearing and if using the assistance of a cane or walker feels supported and stable with the use of such devices. All medical conditions have been taken into account that may pose a risk for the patient for falls. Home wayne, carpets and/or rugs do not pose a challenge for the patient. The patient has been educated about the use of vitamin D supplementation for bone health and prevention of hypotensive episodes that may increase risk for fall. All question and concerns were answered to the patient's satisfaction. [email or web address] Not available 02/15/2023 11:36:55 Plan of Treatment Reminders Order Date Submit Date Provider Last Modified By Organization Details Last Modified Time Details Appointments None recorded. Lab lipid panel, serum 2022 023 [facility], [address] [place] [address] [place], [address], 3 12:46:06 CMP, serum or plasma 2022 023 [facility], [address] [place] [address] [place], [address], 3 12:46:06 CBC w/ auto diff 2022 023 [facility], [address] [place] [address] [place], [address], 3 12:46:06 lipid panel, blood 2021 022 [facility], [address] [facility], [address], [place], [address], 2 10:10:51 Referral None recorded. Procedures None recorded. Surgeries None recorded. Imaging None recorded. Medication Orders Contrave 8 mg-90 mg tablet,ext ended release 2022 024 [facility] #[id number], [address] [place], [address], 4 10:16:03 omeprazole 20 mg capsule,de layed release 2021 022 [id number] [address] [place], [address], 4 10:16:55 topiramate 25 mg tablet 2021 022 [facility]/Pharmacy #[id number], [address] [place], [address], 3 11:27:13 topiramate 25 mg tablet 2021 022 [facility]/Pharmacy #[id number], [address] [place], [address], 3 11:27:13 omeprazole 20 mg capsule,de layed release 2021 022 [email or web address] [id number], [address] [place], [address], 4 10:16:55 Patient TargetsNo targets recorded. Patient Instructions Encounter Date Encounter Id Patient Instructions Last Modified By Organization Details Last Modified Time 10/06/2021 [id number] advance directives: care instructions [email or web address] Not available 10/06/2021 14:57:24 Reason for Referral None Reported. Results Created Date Observation Date Name Description Value Unit Range Abnormal Flag Note LastModifiedBy Organization Detail LastModifiedTime Result Notes None recorded. Problems Name Problem SNOMED Code Status Onset Date Resolution Date Notes Provider Name and Address Organization Details Recorded Time Aortic valve stenosis 10642069 Active 2017 Not Available [facility] 3 07:42:13 Coronary atherosc lerosis 091437204 Active 2018 Not Available [facility] 3 07:42:13 Obesity 199934936 Active 2021 Not Available [facility] 3 07:42:13 Gastroes ophageal reflux disease 034480618 Active 2021 Not Available [facility] 3 07:42:13 [place] ht 773772892 Active 2021 Not Available [facility] 3 07:42:13 COVID-19 666989210 Active 2021 Not Available [facility] 3 07:42:13 Fatigue 37670887 Active 2021 Not Available [facility] 3 07:42:13 Acute urinary tract infectio n 102512818 Active 2022 AMRIK VALDEZ [address] [place] [address], [phone], [facility] 3 09:41:58 Hypothyr oidism 98225247 Active 2017 Not Available [facility] 3 07:42:13 Hypercho lesterol emia 73330039 Active 2017 Not Available [facility] 3 07:42:13 [facility] hyperten sis 50488245 Active 2017 Not Available [facility] 3 07:42:13 Osteoart hritis of knee 220132546 Active 2017 M17.0 Not Available [facility] 3 07:42:13 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 Procedures Surgical History Date Name Laterality Status Provider Name and Address Organization Details Recorded Time 05/18/19 20 Removal of foreign body in ear canal completed July [facility] [address], [address], [facility] 05/18/2019 11:24:56 11/01/19 19 Coronary artery bypass/reop completed July [facility] [address], [address], [facility] 12/08/2018 15:34:04 04/15/19 16 colonoscopy completed Elsie Sánchez NP, [address] [place] [address], [phone], [facility] 05/06/2018 15:59:45 Imaging Results None recorded. Procedure Notes None recorded. Medical Equipment None Reported. Allergies No known drug allergies Medications Name Sig Start Date Stop Date Status Note LastModified by Organization Details LastModified Time furosemide 40 mg tablet Take 1 tablet every day by oral route for 30 days. 03/01 completed Not Available Not Available Not Available pravastatin 40 mg tablet Take 1 tablet(s) every day by oral route. 05/07 completed Not Available Not Available Not Available amiodarone 200 mg tablet 05/18 completed Not Available Not Available Not Available metoprolol succinate ER 50 mg tablet,exte nded release 24 hr TAKE 1 TABLET BY MOUTH EVERY DAY 2023 active Not Available Not Available Not Avai lable lisinopril 20 mg tablet Take 1 tablet every day by oral route. 02/04 completed Not Available Not Available Not Available prednisone 20 mg tablet TAKE 3 TABLETS FOR 5 DAYS THEN TAKE 2 TABLETS FOR 4 DAYS THEN TAKE 1 TABLET FOR 3 DAYS 02/28 completed Not Available Not Available Not Available topiramate 25 mg tablet TAKE 1 TABLET BY MOUTH EVERY DAY 02/15 completed Not Available Not Available Not Available amlodipine 2.5 mg tablet Take 1 tablet every day by oral route for 90 days. 05/18 completed Not Available Not Available Not Available potassium chloride ER 10 mEq tablet,exte nded release 05/18 completed Not Available Not Available Not Available clopidogrel 75 mg tablet Take 1 tablet every day by oral route. 03/01 completed Not Available Not Available Not Available amlodipine 5 mg tablet TAKE 1 TABLET BY MOUTH DAILY active Not Available Not Available No t Available sulfamethox azole 800 mg-trimetho prim 160 mg tablet TAKE 1 TABLET BY MOUTH EVERY 12 HOURS FOR 10 DAYS 02/15 completed Not Available Not Available Not Available aspirin 81 mg tablet,klaus yed release Take 1 tablet every day by oral route. active Not Available Not Available No t Available tramadol 50 mg tablet 05/18 completed Not Available Not Available Not Available levothyroxi ne 75 mcg tablet TAKE 1 TABLET BY MOUTH EVERY DAY. 2023 active Not Available Not Available Not Avai lable Macrobid 100 mg capsule Take 1 capsule every 12 hours by oral route for 7 days. 01/05 completed Not Available Not Available Not Available amlodipine 10 mg tablet Take 1 tablet every day by oral route. 12/08 completed Not Available Not Available Not Available lisinopril 10 mg tablet Take 1 tablet every day by oral route. 01/05 completed Not Available Not Available Not Available omeprazole 20 mg capsule,del ayed release Take 1 capsule every day by oral route for 90 days. 01/12 completed Not Available Not Available Not Available metoprolol succinate ER 25 mg tablet,exte nded release 24 hr 05/18 completed Not Available Not Available Not Available lisinopril 40 mg tablet TAKE 1 TABLET BY MOUTH EVERY DAY 2023 active Not Available Not Available Not Avai lable fluticasone propionate 50 mcg/actuati on nasal spray,suspe nsion 05/18 completed Not Available Not Available Not Available doxycycline hyclate 100 mg tablet TAKE 1 TABLET BY MOUTH TWICE A DAY FOR 7 DAYS 02/28 completed Not Available Not Available Not Available naproxen 500 mg tablet Take 1 tablet twice a day by oral route. 05/07 completed Not Available Not Available Not Available amoxicillin 875 mg-potassiu m clavulanate 125 mg tablet TAKE 1 TABLET BY MOUTH TWICE A DAY UNTIL FINISHED 01/12 completed Not Available Not Available Not Available ezetimibe 10 mg tablet TAKE 1 TABLET BY MOUTH DAILY active Not Available Not Available No t Available rosuvastati n 40 mg tablet TAKE 1 TABLET BY MOUTH ONCE DAILY PLEASE OBTAIN FASTING LIPID PANEL active Not Available Not Available No t Available Crestor 20 mg tablet Take 1 tablet every day by oral route. 12/08 completed Not Available Not Available Not Available metoprolol tartrate 25 mg tablet Take 1 tablet twice a day by oral route. 03/09 completed Not Available Not Available Not Available biotin 12/08 completed Not Available Not Available Not Available Vitamin D active Not Available Not Shy ilable Not Available Contrave 8 mg-90 mg tablet,exte nded release START 1 TAB QD PO FOR ONE WEEKSTART 2 TABS QD PO FOR ONE WEEK 01/12 completed Not Available Not Available Not Available Fluzone High-Dose 2019-20 (PF) 180 mcg/0.5 mL intramuscul ar syringe 05/18 completed Not Available Not Available Not Available Flublok Quad (PF) 180 mcg (45 mcg x 4)/0.5 mL IM syringe 12/30 completed Not Available Not Available Not Available Vitals Date Recorded Body height Body mass index (BMI) Body weight Heart rate Oxygen saturation Oxygen saturation in Arterial blood by Pulse oximetry Systolic blood pressure Diastolic blood pressure Provider Name and Address Organization Details Last Updated DateTime 2 161.93 cm 33.9 kg/m2 12656.1 g 75 /min 96 % 96 % 130 mm[Hg] 72 mm[Hg] AMRIK VALDEZ [address] [place], [address] [facility] 2 14:25:09 Date Recorded Body height Body mass index (BMI) Body weight Heart rate Oxygen saturation Oxygen saturation in Arterial blood by Pulse oximetry Systolic blood pressure Diastolic blood pressure Provider Name and Address Organization Details Last Updated DateTime 2 161.93 cm 33.3 kg/m2 50336.8 9 g 61 /min 95 % 95 % 130 mm[Hg] 80 mm[Hg] AMRIK VALDEZ [address] [place], [address] [facility] 2 10:02:45 Date Recorded Body height Heart rate Oxygen saturation Oxygen saturation in Arterial blood by Pulse oximetry Systolic blood pressure Diastolic blood pressure Provider Name and Address Organization Details Last Updated DateTime 2 161.93 cm 66 /min 97 % 97 % 118 mm[Hg] 76 mm[Hg] Margarita Jack [facility] 2 15:51:18 Date Recorded Body height Body mass index (BMI) Body weight Heart rate Oxygen saturation Oxygen saturation in Arterial blood by Pulse oximetry Systolic blood pressure Diastolic blood pressure Provider Name and Address Organization Details Last Updated DateTime 3 161.93 cm 33.6 kg/m2 86496.9 2 g 69 /min 97 % 97 % 140 mm[Hg] 78 mm[Hg] Isabel Almonte [facility] 3 11:19:20 Date Recorded Body height Body mass index (BMI) Body weight Heart rate Oxygen saturation Oxygen saturation in Arterial blood by Pulse oximetry Systolic blood pressure Diastolic blood pressure Provider Name and Address Organization Details Last Updated DateTime 4 161.93 cm 33.4 kg/m2 59454.0 5 g 67 /min 97 % 97 % 134 mm[Hg] 82 mm[Hg] Francisca Gunderson [facility] 4 10:19:13 Social History Question Answer Notes LastModified by Organizat ion Details LastModified Time Tobacco Smoking Status Never Smoker Not Available [facility] 02/16/2020 03:36:23 What Was The Date Of Your Most Recent Tobacco Screening? 01/13/2024 [email or web address] Information not available 01/13/2024 Do You Or Have You Ever Used Any Other Forms Of Tobacco Or Nicotine? No [email or web address] Information not available 11/10/2021 Sex: Unknown Functional Status None recorded. Mental Status None recorded. Family History Nothing Reported. Medical History No medical history recorded. Gynecological HistoryNo gynecological history recorded. Obstetrics History GPAL:G 0 P 0 0 0 0 Immunizations Vaccine Type Date Status Note Provider Nam e and Address Organization Details Recorded Time Influenza, split virus, quadrivalent, preservative [facility] 15:24:07 Influenza, split virus, quadrivalent, preservative 1 completed Rainer Costa, DO [address] [place] [address], [address], [facility] 03/05/2021 19:36:59 zoster recombinant 2 completed Hattie lopez [facility] 08/11/2021 08:42:09 COVID-19, mRNA, LNP-S, PF, 30 mcg/0.3 mL dose 2 adrianna lopez [facility] 08/11/2021 08:42:19 zoster recombinant 2 completed Hattie lopez [facility] 08/11/2021 09:59:30 COVID-19, mRNA, LNP-S, PF, 30 mcg/0.3 mL dose 2 adrianna lopez [facility] 08/11/2021 09:59:36 Influenza, split virus, quadrivalent, preservative 2 completed Alaina lopez [facility] 01/01/2022 07:59:12 COVID-19, mRNA, LNP-S, PF, 50 mcg/0.5 mL dose 3 completed Alaina Marquez [facility] 05/28/2022 08:40:03 Influenza, split virus, quadrivalent, preservative 8 completed Hattie lopez [facility] 05/07/2018 09:55:59 Td (adult) 5 completed Giuliana Hartman [facility] 10/09/2017 14:51:02 pneumococcal, unspecified formulation 5 completed Giuliana Hartman [facility] 10/09/2017 14:51:39 Influenza, split virus, quadrivalent, preservative 9 completed Hattie Padilla [facility] 05/18/2019 11:01:23 Influenza, split virus, quadrivalent, preservative 0 completed Mera Miguel [facility] 03/01/2020 12:15:35 COVID-19, mRNA, LNP-S, PF, 30 mcg/0.3 mL dose 1 completed Taylor Tidwell [facility] 06/22/2020 13:34:53 COVID-19, mRNA, LNP-S, PF, 30 mcg/0.3 mL dose 1 completed Rainer Costa, DO [address] [place] [address], [address], [facility] 07/16/2020 21:45:55 Past Encounters Encounter ID Performer Location Encounter Start Date Encounter Closed Date Diagnosis/Indication Diagnosis SNOMED-CT Code Diagnosis ICD10 Code Diagnosis Note [id number] Elsie Sánchez NP, [facility] [address],[place] [address] 10/02/2017 15:21:31 10/04/2017 08:29:47 Essential hypertension 72036140 I10 Hypothyroidism 40195354 E03.9 Pain in right knee 12577 09120 12227 M25.561 Hypercholesterolemia 136 69837 E78.00 follow Heart murmur 19736983 R0 1.1 Pes anseri nus bursitis 99474245 M70.51 rest, wrap, tylenol. no NSAIDS re: new murmur, call if no better [id number] Elsie Sánchez NP, S [facility] [address], [place] [address] 10/15/2017 09:57:57 10/15/2017 11:41:30 Heart murmur 92934454 R01.1 await echo results Daniel stockton 30750514 M70.51 appt with ortho in 2 days Essential hypertension 33597879 I10 mildly elevated, anxiety, follow [id number] Elsie Sánchez NP, [facility] [address] [facility] [address] [place], [place] [address] 05/07/2018 09:46:32 05/07/2018 10:49:46 Adult health examination 658025327 Z00.01 Aortic valve stenosis 60 602818 I35.0 recent echo Osteoarthr itis of knee 906484778 M17.0 Essential hypertension 18643201 I10 mildly elevated, anxiety, follow Hypercholesterolemia 136 52360 E78.00 follow, to do labs this week ( slip from cardiologi ) Hypothyroidism 30720765 E03.9 stable [id number] [facility] [address] [facility], [place] [address] 12/08/2018 15:12:31 12/08/2018 16:00:19 Coronary atherosclerosis 575655231 I25.119 s/p bypass Essential hypertension 93323418 I10 persistent ly elevated after recheck recommend restarting lisinopril at lower dose than previous, will titrate up if needed. f/u soon if bP gets worse will have checked twice per week at cardiac rehab Hypercholesterolemia 136 79318 E78.00 on high dose crestor Dysuria 65406097 R30.0 [id number] [facility] [address] [facility],[place] [address] 01/05/2019 10:04:00 01/05/2019 10:30:03 Coronary atherosclerosis 246675302 I25.119 s/p bypass Essential hypertension 18141154 I10 BP continues to be elevated despite dose increase will add the lisinopril 40 mg back in Hypercholesterolemia 136 98784 E78.00 on high dose crestor Hypothyroidism 18830765 E03.9 [id number] [facility] [address] [facility], [place] [address] 02/04/2019 09:27:47 02/04/2019 10:00:00 Coronary atherosclerosis 813251722 I25.119 s/p bypass Essential hypertension 17800909 I10 BP continues to be elevated despite dose increase will increase metoprolol from 25 to 50 pt would like to do once daily of metoprolol if possible Hypercholesterolemia 136 87968 E78.00 on high dose crestor very well controlled Hypothyroidism 63755375 E03.9 stable [id number] [facility] [address] [facility],[place] [address] 03/09/2019 11:05:20 03/09/2019 11:36:36 Essential hypertension 92717056 I10 was increased to metoprolol ER 50, didn't realize the change in her dosing so was taking 50 mg BID so she has been taking 100 mg of metoprolol will have pt continue lisinopril 40 will continue metoprolol 50, but advised to take once per day will add amlodipine 2.5 mg Posterior rhinorrhea 758 01749 R09.82 [facility] zyrtec [facility] Dyspnea on exertion 6084 5006 R06.09 persisting , improving with cardiac rehab, but feels like she should be going more [id number] [facility] [address] [facility],[place] [address] 05/18/2019 10:55:56 05/18/2019 12:19:38 Aortic valve stenosis 29233498 I35.0 Coronary atherosclerosis 416550293 I25.119 s/p bypass Essential hypertension 44745984 I10 BP well controlled Foreign body in ear 7544 1006 T16.1XXA COTTON REMOVED FROM EAR NO PROBLEM WITH PROC Hypothyroidism 27851176 E03.9 stable [id number] AMRIK VALDEZ [facility] [address] [facility] [address] [place] [address] 03/01/2020 11:36:38 03/01/2020 13:32:06 Hypercholesterolemia 11117749 E78.00 needs recheck of cholestero l as well will send copy of note to her cardiologi st Hypothyroidism 22911915 E03.9 will recheck thyroidism concerned about weight gain, will see if needs med adjustment Essential hypertension 47906409 I10 BP is lower than it has been, down from the 170s [id number] AMRIK VALDEZ [facility] [address] [facility] [address],[place] [address] 12/30/2020 11:34:19 01/03/2021 14:10:09 Coronary atherosclerosis 416242667 I25.119 stable Screening mammography 24 224645 Z12.31 stable Essential hypertension 26306344 I10 stable at home Hypothyroidism 95577699 E03.9 stable [id number] AMRIK VALDEZ [facility] [address] [facility] [address],[place] [address] 10/06/2021 14:14:32 10/06/2021 15:21:55 Essential hypertension 97063902 I10 stable at home Coronary atherosclerosis 489560787 I25.119 stable (GAP SCORE) Advance care planning 71 8524911 Z71.89 addressed with patient Obesity 726428461 E66.09 will fu in a month and see how the med worked Gastroesop hageal reflux disease 772973907 K21.9 start omeprazole for 3 months [id number] AMRIK VALDEZ [facility] [address] [facility] [address],[place] [address] 11/10/2021 09:57:15 11/10/2021 10:33:47 Gastroesophageal reflux disease 388224486 K21.9 doing really well on the medication Hypothyroidism 88071935 E03.8 stable with last check Essential hypertension 01826485 I10 stable at home per patient Hypercholesterolemia 136 54212 E78.00 needs recheck of cholestero l as well will send copy of note to her cardiologi st Active or passive immunization 348711157 Z23 patient advised she is due for pneu Overweight 754419176 E66 .3 will f/u with pt in 3 mosdoing really well on medication [id number] AMRIK VALDEZ [facility] [address] [address] [address],[place] [address] 02/28/2022 15:33:28 02/28/2022 16:17:51 COVID-19 526826037 U07.1 improving Gastroesop hageal reflux disease 868359190 K21.9 doing really well on the medication Fatigue 34335644 R53.83 suggested vitamin D, C, B and zinc [id number] AMRIK VALDEZ [facility] [address] [facility] [address],[place] [facility] [place] [address] 02/15/2023 11:09:59 02/15/2023 14:15:14 Coronary atherosclerosis 073531270 I25.119 stable (GAP SCORE) Obesity 141019354 E66.09 will trial contrave insteadwil l adjust if needed if insurance doesn't get covered Essential hypertension 60010633 I10 stable at home per patient Hypercholesterolemia 136 54321 E78.2 will set up with lab work [id number] AMRIK VALDEZ [facility] [address] [facility] [address],[place] [address] 01/13/2024 09:55:58 01/13/2024 10:45:22 Renewal of prescription 894964360 Z76.0 stable Depression screening 171 587591 Z13.31 SCREENING NEGATIVE Aortic valve stenosis 60 563942 I35.0 stable Essential hypertension 67089567 I10 stable at home per patient Health Concerns Section Related Observation LastModified by Organization Detai ls LastModified Time None Recorded Concern Status LastModified by Organization Details LastModified Time None Recorded Advance Directives Directive None Recorded Payers Encounter Date Sequence Insurance Name Policy Number Policy Rick Covered Member ID Rick Member ID Guarantor Name 10/06/2021 1 [facility] [id number] 3 Doris Mccloudlante [id number] Doris Mccloudlante 11/10/2021 1 [facility] [id number] 3 Doris Mccloudlante [id number] Doris Mccloudlante 02/28/2022 1 [facility] [id number] Doris Mccloudlante [id number] Doris Mccloudlante 02/15/2023 1 [facility] [id number] 3 Doris Mccloudlante [id number] Doris Mccloudlante 01/13/2024 1 [facility] [id number] 3 Doris Mccloudlante [id number] Doris Yepez Notes Date Note Type Note Provider Name a nd Address Organization Details Recorded Time 2 text/html HTN fu the patient has been on a low carb diet for the past three weeksthe patient reports she hasn't been able lose any weightdiscussed age, post menopausal, all can affect rate of weight losssuggested starting a medication to assist with her weight losspatient agreedwill fu in a month to discuss how medication is working HTN: today in the office the patient BP is 130/72 L arm the patient is doing well on the BP medication with no side effects and no adjustment of their medications needed today at the appointment well-controlled on medication denies chest pain, sob, ankle swelling, orthopnea, palpitations GERD: will start on omeprazole, 30 minutes prior to first meal in the morningfu in a month AMRIK VALDEZ [address] [place], [phone], [facility] 10/06/2021 15:05:28 2 text/html 1 month f/u overweight: the patient reports that she is not having any side effects with the topimaxreports that she is losing a pound a weekthe patient reports that she is really happy with her progress and with the medication HTN: today in the office the patient BP is 130/80 L arm the patient is doing well on the BP medication with no side effects and no adjustment of their medications needed today at the appointment well-controlled on medication denies chest pain, sob, ankle swelling, orthopnea, palpitations HLD: lab ordered GERD: much improved, will continue AMRIK VALDEZ [address] [place], [phone], [facility] 11/10/2021 10:17:54 2 text/html ER f/u the patient went to the ER for post-COVID syndromethe patient was found to have URI and a UTIthe patient was started on doxycycline and prednisone taperthe patient reports that she did gain weight back on the prednisone due to increased appetite the patient is here for a f/u about the post-COVIDthe patient will work on working out, increasing vitamin D. B, zinc, and C GERD needs refill AMRIK VALDEZ [address] [place], [phone], [facility] 02/28/2022 16:13:36 3 text/html medication check the patient has a mild cold from her recent cruisethe patient is doing okay otherwise would like try contrave dianatnll set up prescription for contrave will follow up pt if issues with the medication sees cardio stillstable at home needs routine lab work AMRIK VALDEZ [address] [place], [phone], [facility] 02/15/2023 11:41:50 4 text/html medication f/u depression screening: The patient denies little pleasure in activities they find enjoyable, feeling depressed, difficulties sleeping, feeling tired or having little energy, change in appetite, feeling guilty, overwhelmed or unmotivated. The patient denies suicidal ideation, thoughts of hurting themselves or others. Their mood is appropriate, they show good judgement and clear understanding of the conversation. They are orientated to time, place and person. They are not expressing any concerning thoughts or actions that would need further investigation and treatment for mental health. HTN: today in the office the patient BP is 134/82 L armthe patient is doing well on the BP medication with no side effects and no adjustment of their medications needed today at the appointmentwell-cont rolled on medicationdenies chest pain, sob, ankle swelling, orthopnea, palpitations aortic stenosis: sees cardiology, hx of open heart surgery will need to be changing her PCP to closer for patient AMRIK VALDEZ [address] [place], [phone], [facility] 01/13/2024 10:44:25 OBGyn Episode No OBEpisode recorded.
== END ==
LOC: HO.CARD 09:04
DX: R07.89 Other chest pain (principal)
CPT/HCPCS: 93017; J0280; J2785

== ENCOUNTER → 2024-06-10 09:09 | Outpatient (BNV) | payer MEDICARE, SELFPAY | DX: R06.02 Shortness of breath (principal) | CPT/HCPCS: 78452; 93016; 93018 ==

== ENCOUNTER 2024-10-21 13:06 | Outpatient (AMB) | payer MEDICARE, SELFPAY ==
--- NOTE | 2024-10-21 13:36 | A.OFFVIS_ITS ---
Vital Signs 10/21/24 13:37 Height 5 ft 5 in Weight 180 lb 12.465 oz BMI 30.1 BP 130/62 Blood Pressure Location Rt brachial Position Sitting Pulse 58 Pulse Source Pulse Oximeter Intake Visit Reasons: 6n follow up Intake Note: 6 mth f/up Territory Service Representative Required: No Accompanied by: Self / Same As Patient Allergies No Known Allergies Allergy (Verified 04/20/24 14:20) Medication List - Last Reconciled 10/21/24 by Alexy Georges NP amlodipine 5 mg PO DAILY aspirin 81 mg PO DAILY cholecalciferol (vitamin D3) 50 mcg PO DAILY ezetimibe (Zetia) 10 mg PO DAILY levothyroxine 75 mcg PO DAILY lisinopril 40 mg PO DAILY metoprolol succinate ER 50 mg PO DAILY rosuvastatin 40 mg PO DAILY 90 days turmeric mg PO HPI Comments Details: This is a 79-year-old female patient coming in for a follow-up visit. Patient with a history of hypertension, coronary artery disease, hyperlipidemia and coronary artery bypass in 2019. Patient had reported chest pain in in her previous visit during which time patient also had some ongoing stress with her partner's . Patient had also reported some intermittent shortness of breath during that time. Subsequently patient underwent an echo, and myocardial perfusion study. Today, patient reports feeling well overall and notes resolution of her chest pain and shortness of breath. Patient is also denying any palpitations, dizziness, orthopnea, PND, leg edema, presyncope, or syncope. Patient notes that she has been trying to stay more active and has lost about 14 lb since her last visit, for which she was commended. Patient is reporting compliance with all her medications. [facility] Medical History Atypical chest pain Other and unspecified hyperlipidemia Essential hypertension Atherosclerotic cardiovascular disease Surgical History History of coronary artery bypass graft (~10/2018) Family History Father No problems noted. Mother No problems noted. Social History Alcohol intake: current Alcohol intake frequency: holidays/special occasions only Alcohol type: wine Patient Tobacco Use Status: Never used Tobacco Review of Systems Const Denies chills, Denies fatigue, Denies fever(s), Denies frequent falls, Denies weakness, Denies weight gain and Denies weight loss ENT Denies dizziness Card Denies chest pain, Denies leg edema, Denies lightheadedness, Denies palpitations, Denies dyspnea and Denies dyspnea on exertion Resp Denies cough, Denies dyspnea and Denies dyspnea on exertion GI Denies hematochezia Musc Denies abnormal gait, Denies muscle weakness, Denies numbness, Denies radiating pain into limb and Denies tingling Neuro Denies abnormal gait, Denies dizziness, Denies frequent falls, Denies numbness, Denies tingling and Denies weakness Endo Denies fatigue and Denies palpitations Physical Exam Vital Signs: Last Vital Signs Pulse 58 10/21/24 13:37 BP 130/62 10/21/24 13:37 BMI result Body Mass Index 30.1 Const General: cooperative, healthy appearing, comfortable and no acute distress Orientation/consciousness: patient oriented x3 HEENT Head: Yes normal to inspection Neck Neck: Yes normal visual inspection, Yes trachea midline and Yes supple Chest Chest palpation & inspection: normal inspection of the chest Resp Effort & Inspection: normal respiratory effort Auscultation: clear to auscultation bilaterally, no crackles, no rales, no rhonchi and no wheezes Cardio Jugular venous distension: no JVD Palpation: normal PMI Rate: regular rate Rhythm: regular rhythm Heart sounds: S1 normal heart sound present, S2 normal heart sound present, no click, no gallops, no murmurs and no rubs Peripheral pulses: Peripheral pulses 2+ throughout GI Inspection: Yes normal to inspection Palpation (GI): Soft to palpation Auscultation: normal bowel sounds Skin General skin exam: no rashes or lesions noted Neuro General: patient oriented x3 Extrem General: Yes normal to inspection, No no pedal edema and No calf tenderness Psych Appearance: grossly normal Mental Status: mental status grossly normal Speech and movement: Normal speech and movement present Affect: Sad affect present Assessment & Plan Assessment & Plan (1) Atherosclerotic cardiovascular disease: Code(s): I25.10 - Atherosclerotic heart disease of [place] coronary artery without angina pectoris Category: Medical Plan: History of coronary artery disease status post CABG. With her previous comments of chest pain and shortness of breath, patient underwent an echo and myocardial perfusion study. 04/28/2024-echo showed normal LV systolic function with an ejection fraction at 64%, with severe calcification of the aortic valve, mild aortic valve stenosis, and moderate mitral annular calcification. 06/10/2024-myocardial perfusion study showed likely normal perfusion. Given resolution of her symptoms and above findings, no further testing indicated at this time. Continue aspirin therapy. Continue metoprolol, lisinopril, amlodipine, statin, and Zetia therapy. (2) Essential hypertension: Code(s): I10 - Essential (primary) hypertension Category: Medical Plan: Blood pressure today is well-controlled. Continue current regimen. Advised monitoring blood pressures at home. Ideally, blood pressure goal less than 130/80. (3) Other and unspecified hyperlipidemia: Code(s): E78.5 - Hyperlipidemia, unspecified Category: Medical Plan: Most recent LDL from April 2024 57, with an goal of less than 70. Continue statin and Zetia therapy. (4) Aortic valve calcification: Code(s): I35.9 - Nonrheumatic aortic valve disorder, unspecified Category: Medical Plan: As above. (5) Mitral annular calcification: Code(s): I05.9 - Rheumatic mitral valve disease, unspecified Category: Medical Plan: As above. Advised heart healthy diet, regular exercise, weight loss, med compliance, and management of vascular risk factors. Follow up in 1 year, sooner if needed. In the interim, patient will call the office with any concerns or change in symptoms. Advised seeking ER care in case of exertional chest pain not resolved with rest. This note was generated using voice recognition software. While every effort has been made to ensure accuracy and proper autobody technician, there may be occasional errors that could affect the content or meaning of the described symptoms. Orders: Orders CA echo transthoracic complete 1 Year I35.9 - Nonrheumatic aortic valve disorder, unspecified Coding Level of Care Code Est Pt Level 4 (83115) Complex EM visit Add On G2211 Diagnoses Atherosclerotic cardiovascular disease I25.10 Essential hypertension I10 Other and unspecified hyperlipidemia E78.5 Aortic valve calcification I35.9 Mitral annular calcification I05.9 Time Spent (min) 32 Comment Time spent in reviewing the chart, test results, assessment, counseling and documentation.
[2024-10-21 13:37] VITALS: BP 130/62; PULSE 58; BMI 30.1
--- OUTSIDE RECORDS SUMMARY | 2024-10-21 13:54 | XMS_ITS | Patient Health Record ---
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 (V58.66) Active confirmed Plan Of Treatment Future Test Test Name Order Date COLONOSCOPY 12/23/2014 Insurance Providers Payer Name Payer Address Payer Phone Subscriber Number Group Number Insured Name Patient Relationship to Insured Coverage Start Date Coverage End Date [facility] [address] [place] [phone] [id number] KIRBY QUEEN Self - patient is the insured Medical (General) History Medical History History ICD Code colonoscopy 12-27-2004 ileitis diverticulosis hypothyroidism hypertension elevated cholesterol Denies [place],DM,CVA,Lung disease,renal dise ase Surgical History Surgery Date(Month/Year) tonsillectomy
--- OUTSIDE RECORDS SUMMARY | 2024-10-21 13:55 | XMS_ITS | Data Portability ---
Author Organization [facility] Patient Home Address [address] [place] [address] Assessment Encounter Date Assessment Date Assessment LastModified [...] recorded. Lab lipid panel, serum 2022 023 [facility], [address] [place] [address] [place], [address], 3 12:46:06 CMP, serum or plasma 2022 023 [facility], [address] [place] [address] [place], [address], 3 12:46:06 CBC w/ auto diff 2022 023 [facility], [address] [place] [address] [place], [address], 3 12:46:06 lipid panel, blood 2021 022 [facility], [address] [facility], [address], [place], [address], 2 10:10:51 Referral None recorded. Procedures None recorded. Surgeries None recorded. Imaging None recorded. Medication Orders Contrave 8 mg-90 mg tablet,ext ended release 2022 024 [facility] #[id number], [address] [place], [address], 4 10:16:03 omeprazole 20 mg capsule,de layed release 2021 022 [email or web address] [facility]acy #[id number], [address] [facility] [place], [address], 4 10:16:55 topiramate 25 mg tablet 2021 022 [facility] [place] #[id number], [address] [facility] [place], [address], 3 11:27:13 topiramate 25 mg tablet 2021 022 [email or web address] [id number], [address] [place], [address], 3 11:27:13 omeprazole 20 mg capsule,de layed release 2021 022 [email or web address] [id number], [address] [place], [address], 4 10:16:55 Patient TargetsNo targets recorded. Patient Instructions Encounter Date Encounter Id Patient Instructions Last Modified By Organization Details Last Modified Time 10/06/2021 [id number] advance directives: care instructions [email or web address] Not available 10/06/2021 14:57:24 Reason for Referral None Reported. Results Created Date Observation Date Name Description Value Unit Range Abnormal Flag Note LastModifiedBy Organization Detail LastModifiedTime Result Notes None recorded. Problems Name Problem SNOMED Code Status Onset Date Resolution Date Notes Provider Name and Address Organization Details Recorded Time Aortic valve stenosis 35239863 Active 2017 Not Available [facility] 3 07:42:13 Coronary atherosc lerosis 412526480 Active 2018 Not Available [facility] 3 07:42:13 Obesity 520763105 Active 2021 Not Available [facility] 3 07:42:13 Gastroes ophageal reflux disease 795016550 Active 2021 Not Available [facility] 3 07:42:13 [place] ht 250095700 Active 2021 Not Available [facility] 3 07:42:13 COVID-19 109965300 Active 2021 Not Available [facility] 3 07:42:13 Fatigue 09596572 Active 2021 Not Available [facility] 3 07:42:13 Acute urinary tract infectio n 310088022 Active 2022 AMRIK VALDEZ [address] [place], [address], [facility] 3 09:41:58 Hypothyr oidism 88715136 Active 2017 Not Available [facility] 3 07:42:13 Hypercho lesterol emia 26102574 Active 2017 Not Available [facility] [place] [facility] 3 07:42:13 [facility] hyperten sis 79914526 Active 2017 Not Available [facility] [place] [facility] 3 07:42:13 Osteoart hritis of knee 127524969 Active 2017 M17.0 Not Available [facility] [place] [facility] 3 07:42:13 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 Procedures Surgical History Date Name Laterality Status Provider Name and Address Organization Details Recorded Time 05/18/19 20 Removal of foreign body in ear canal completed July TiffanyHANNAH [address] [place] [address], [phone], [facility] 05/18/2019 11:24:56 11/01/19 19 Coronary artery bypass/reop completed July [facility] [address], [address], [facility] 12/08/2018 15:34:04 04/15/19 16 colonoscopy completed Elsie Sánchez NP, [address] [place] [address], [phone], [facility] 05/06/2018 15:59:45 Imaging Results None [...] Available Not Available Not Available Fluzone High-Dose 2018- (PF) 180 mcg/0.5 mL intramuscul ar syringe 05/18 completed Not Available Not Available Not Available Flublok Quad (PF) 180 mcg (45 mcg x 4)/0.5 mL IM syringe 12/30 completed Not Available Not Available Not Available Vitals Date Recorded Body height Body mass index (BMI) Body weight Heart rate Oxygen saturation Oxygen saturation in Arterial blood by Pulse oximetry Systolic And Diastolic Provider Name and Address Organization Details Last Updated DateTime 2 161.93 cm 33.9 kg/m2 28437.1 g 75 /min 96 % 96 % 130/72 mm[Hg] AMRIK VALDEZ [address] [place], [address] 2 14:25:09 Date Recorded Body height Body mass index (BMI) Body weight Heart rate Oxygen saturation Oxygen saturation in Arterial blood by Pulse oximetry Systolic And Diastolic Provider Name and Address Organization Details Last Updated DateTime 2 161.93 cm 33.3 kg/m2 78295.8 9 g 61 /min 95 % 95 % 130/80 mm[Hg] AMRIK VALDEZ [address] [place], [address], [facility] 2 10:02:45 Date Recorded Body height Body mass index (BMI) Body weight Heart rate Oxygen saturation Oxygen saturation in Arterial blood by Pulse oximetry Systolic And Diastolic Provider Name and Address Organization Details Last Updated DateTime 4 161.93 cm 33.4 kg/m2 12781.0 5 g 67 /min 97 % 97 % 134/82 mm[Hg] Francisca Gunderson [facility] 4 10:19:13 Date Recorded Body height Body mass index (BMI) Body weight Heart rate Oxygen saturation Oxygen saturation in Arterial blood by Pulse oximetry Systolic And Diastolic Provider Name and Address Organization Details Last Updated DateTime 3 161.93 cm 33.6 kg/m2 88425.9 2 g 69 /min 97 % 97 % 140/78 mm[Hg] Isabel Almonte [facility] 3 11:19:20 Date Recorded Body height Heart rate Oxygen saturation Oxygen saturation in Arterial blood by Pulse oximetry Systolic And Diastolic Provider Name and Address Organization Details Last Updated DateTime 2 161.93 cm 66 /min 97 % 97 % 118/76 mm[Hg] Margarita Jack [facility] 2 15:51:18 Social History Question Answer Notes LastModified by Organizat ion Details LastModified Time Tobacco Smoking Status Never Smoker Not Available [facility] 02/16/2020 03:36:23 What Was The Date Of Your Most Recent Tobacco Screening? 01/13/2024 [email or web address] Information not available 01/13/2024 Sex: Unknown Functional Status Question Answer Note LastModified by Organization D etails LastModified Time Do you or have you ever used any other forms of tobacco or nicotine? No [email or web address] Information not available 11/10/2021 Mental Status None recorded. Family History Nothing Reported. Medical History No medical history recorded. Gynecological HistoryNo gynecological history recorded. Obstetrics History GPAL:G 0 P 0 0 0 0 Immunizations Vaccine Type Date Status Note Provider Nam e and Address Organization Details Recorded Time Influenza, split virus, quadrivalent, preservative 1 [facility] 15:24:07 Influenza, split virus, quadrivalent, preservative 1 completed Rainer Costa, DO [address] [facility], [place], [address], [facility] 03/05/2021 19:36:59 zoster recombinant 2 [facility] 08/11/2021 08:42:09 COVID-19, mRNA, LNP-S, PF, 30 mcg/0.3 mL dose 2 adrianna lopez [facility] 08/11/2021 08:42:19 zoster recombinant 2 [facility] 08/11/2021 09:59:30 COVID-19, mRNA, LNP-S, PF, 30 mcg/0.3 mL dose 2 [facility] 08/11/2021 09:59:36 Influenza, split virus, quadrivalent, preservative 2 completed [facility] 01/01/2022 07:59:12 COVID-19, mRNA, LNP-S, PF, 50 mcg/0.5 mL dose 3 completed Alaina Marquez [facility] 05/28/2022 08:40:03 Influenza, split virus, quadrivalent, preservative 8 completed [facility] 05/07/2018 09:55:59 Td (adult) 5 completed Giuliana Balicki [facility] 10/09/2017 14:51:02 pneumococcal, unspecified formulation 5 completed Giuliana Devan [facility] 10/09/2017 14:51:39 Influenza, split virus, quadrivalent, preservative 9 completed Hattie Randy [facility] 05/18/2019 11:01:23 Influenza, split virus, quadrivalent, preservative 0 completed Mera Miguel [facility] 03/01/2020 12:15:35 COVID-19, mRNA, LNP-S, PF, 30 mcg/0.3 mL dose 1 completed Taylor iTdwell [facility] 06/22/2020 13:34:53 COVID-19, mRNA, LNP-S, PF, 30 mcg/0.3 mL dose 1 completed Rainer Costa DO [address] [place] [address], [phone] 07/16/2020 21:45:55 Past Encounters Encounter ID Performer Location Encounter Start Date Encounter Closed Date Diagnosis/Indication Diagnosis SNOMED-CT Code Diagnosis ICD10 Code Diagnosis Note [id number] Rainer Costa DO [address],[place] [address] 10/02/2017 15:21:31 10/04/2017 08:29:47 Essential hypertension 68160164 I10 Hypothyroidism 36086340 E03.9 Pain in right knee 43363 87088 87820 M25.561 Hypercholesterolemia 136 35996 E78.00 follow Heart murmur 06578009 R0 1.1 Pes anseri nus bursitis 96940425 M70.51 rest, wrap, tylenol. no NSAIDS re: new murmur, call if no better [id number] Rainer Costa DO [facility] [address],[place] [address] 10/15/2017 09:57:57 10/15/2017 11:41:30 Heart murmur 13349165 R01.1 await echo results Pes anseri nus bursitis 54278516 M70.51 appt with ortho in 2 days Essential hypertension 79785377 I10 mildly elevated, anxiety, follow [id number] Rainer Costa [facility] [address] [facility] [address] 05/07/2018 09:46:32 05/07/2018 10:49:46 Adult health examination 528528312 Z00.01 Aortic valve stenosis 60 215500 I35.0 recent echo Osteoarthr itis of knee 230716302 M17.0 Essential hypertension 86955102 I10 mildly elevated, anxiety, follow Hypercholesterolemia 136 84319 E78.00 follow, to do labs this week ( slip from cardiologi ) Hypothyroidism 73442503 E03.9 stable [id number] Rainer Costa [facility] [address] [facility], [place] [address] 12/08/2018 15:12:31 12/08/2018 16:00:19 Coronary atherosclerosis 409271370 I25.119 s/p bypass Essential hypertension 46002470 I10 persistent ly elevated after recheck recommend restarting lisinopril at lower dose than previous, will titrate up if needed. f/u soon if bP gets worse will have checked twice per week at cardiac rehab Hypercholesterolemia 136 36315 E78.00 on high dose crestor Dysuria 68328378 R30.0 [id number] Rainer Costa [facility] [address] [facility],[place] [address] [place] [address] 01/05/2019 10:04:00 01/05/2019 10:30:03 Coronary atherosclerosis 548373453 I25.119 s/p bypass Essential hypertension 08961857 I10 BP continues to be elevated despite dose increase will add the lisinopril 40 mg back in Hypercholesterolemia 136 06078 E78.00 on high dose crestor Hypothyroidism 37284133 E03.9 [id number] Rainer Costa [facility] [address] [facility],[place] [address] [place] [employer] [place] [address] 02/04/2019 09:27:47 02/04/2019 10:00:00 Coronary atherosclerosis 668865676 I25.119 s/p bypass Essential hypertension 26468388 I10 BP continues to be elevated despite dose increase will increase metoprolol from 25 to 50 pt would like to do once daily of metoprolol if possible Hypercholesterolemia 136 05146 E78.00 on high dose crestor very well controlled Hypothyroidism 12106178 E03.9 stable [id number] Rainer Costa [facility] [address] [facility],[place] [address] 03/09/2019 11:05:20 03/09/2019 11:36:36 Essential hypertension 75585485 I10 was increased to metoprolol ER 50, didn't realize the change in her dosing so was taking 50 mg BID so she has been taking 100 mg of metoprolol will have pt continue lisinopril 40 will continue metoprolol 50, but advised to take once per day will add amlodipine 2.5 mg Posterior rhinorrhea 758 18324 R09.82 try zyrtec in stead of benadryl Dyspnea on exertion 6084 5006 R06.09 persisting , improving with cardiac rehab, but feels like she should be going more [id number] [facility] [address] [facility],[place] [address] 05/18/2019 10:55:56 05/18/2019 12:19:38 Aortic valve stenosis 06729253 I35.0 Coronary atherosclerosis 557428948 I25.119 s/p bypass Essential hypertension 11529353 I10 BP well controlled Foreign body in ear 7544 1006 T16.1XXA COTTON REMOVED FROM EAR NO PROBLEM WITH PROC Hypothyroidism 07438978 E03.9 stable [id number] Rainer Costa [facility] [address] [facility],[place] [facility] [place] [address] 03/01/2020 11:36:38 03/01/2020 13:32:06 Hypercholesterolemia 58511053 E78.00 needs recheck of cholestero l as well will send copy of note to her cardiologi st Hypothyroidism 97495806 E03.9 will recheck thyroidism concerned about weight gain, will see if needs med adjustment Essential hypertension 51069958 I10 BP is lower than it has been, down from the 170s [id number] Rainer Costa [facility] [address] [facility],[place] [facility] [place] [address] 12/30/2020 11:34:19 01/03/2021 14:10:09 Coronary atherosclerosis 708335402 I25.119 stable Screening mammography 24 488748 Z12.31 stable Essential hypertension 37881734 I10 stable at home Hypothyroidism 84257145 E03.9 stable [id number] Rainer Costa [facility] [address] [facility], [place] [facility] [address] 10/06/2021 14:14:32 10/06/2021 15:21:55 Essential hypertension 87168425 I10 stable at home Coronary atherosclerosis 079672537 I25.119 stable (GAP SCORE) Advance care planning 71 4798730 Z71.89 addressed with patient Obesity 030014321 E66.09 will fu in a month and see how the med worked Gastroesop hageal reflux disease 376133385 K21.9 start omeprazole for 3 months [id number] [facility] [address] [facility], [place] [address] 11/10/2021 09:57:15 11/10/2021 10:33:47 Gastroesophageal reflux disease 759442715 K21.9 doing really well on the medication Hypothyroidism 52545692 E03.8 stable with last check Essential hypertension 76363217 I10 stable at home per patient Hypercholesterolemia 136 93319 E78.00 needs recheck of cholestero l as well will send copy of note to her cardiologi st Active or passive immunization 323967441 Z23 patient advised she is due for pneu Overweight 994701143 E66 .3 will f/u with pt in 3 mosdoing really well on medication [id number] Rainer Costa [facility] [address] [facility], it[address] Leyla [place] [address] 02/28/2022 15:33:28 02/28/2022 16:17:51 COVID-19 673055719 U07.1 improving Gastroesop hageal reflux disease 291442427 K21.9 doing really well on the medication Fatigue 14376465 R53.83 suggested vitamin D, C, B and zinc [id number] Rainer Costa DO [facility] [address] [facility],[place] itjuan Mayer [place] [address] 02/15/2023 11:09:59 02/15/2023 14:15:14 Coronary atherosclerosis 559534023 I25.119 stable (GAP SCORE) Obesity 869966250 E66.09 will trial contrave insteadwil l adjust if needed if insurance doesn't get covered Essential hypertension 55755700 I10 stable at home per patient Hypercholesterolemia 136 99705 E78.2 will set up with lab work [id number] Rainer Costa DO [facility] [address] [facility],Cherelle Mayer [place] [address] 01/13/2024 09:55:58 01/13/2024 10:45:22 Renewal of prescription 127809064 Z76.0 stable Depression screening 171 940769 Z13.31 SCREENING NEGATIVE Aortic valve stenosis 60 862611 I35.0 stable Essential hypertension 08883765 I10 stable at home per patient Health Concerns Section Related Observation LastModified by Organization Detai ls LastModified Time None Recorded Concern Status LastModified by Organization Details LastModified Time None Recorded Advance Directives Directive None Recorded Payers Insurance Date Sequence Insurance Name Policy Number Policy Rick Covered Member ID Rick Member ID Guarantor Name 01/13/2024 1 [facility] [id number] Doris Yepez [id number] Doris Yepez Notes Date Note Type Note [...] morningfu in a month AMRIK VALDEZ [address] [place], [address], [facility] 10/06/2021 15:05:28 2 text/html 1 [...] much improved, will continue AMRIK VALDEZ [address] [place], [address], [facility] 11/10/2021 10:17:54 2 text/html ER [...] C GERD needs refill AMRIK VALDEZ [address] [place], [address], [facility] 02/28/2022 16:13:36 3 text/html medication check the patient has a mild cold from her recent cruisethe patient is doing okay otherwise would like try contrave [facility] set up prescription for contrave will follow up pt if issues with the medication sees cardio stillstable at home needs routine lab work AMRIK VALDEZ [address] [place], [address], [facility] 02/15/2023 11:41:50 4 text/html medication [...] to closer for patient AMRIK VALDEZ [address] [facility], [place], [address], [facility] 01/13/2024 10:44:25 OBGyn Episode No OBEpisode recorded.
== END 2024-10-21 13:53 | disposition home or self-care (01) ==
LOC: HO.HCS 13:07
PROVIDERS: PCP Internal Medicine
DX: I25.10 Atherosclerotic heart disease of native coronary artery without angina pectoris (principal); I10 Essential (primary) hypertension; E78.5 Hyperlipidemia, unspecified; I35.9 Nonrheumatic aortic valve disorder, unspecified; I05.9 Rheumatic mitral valve disease, unspecified
CPT/HCPCS: 99214; G2211

== ENCOUNTER → 2024-10-21 13:06 | Outpatient (BNVA) | payer MEDICARE, SELFPAY | PROVIDERS: PCP Internal Medicine | DX: I25.10 Atherosclerotic heart disease of native coronary artery without angina pectoris (principal); E78.5 Hyperlipidemia, unspecified; I10 Essential (primary) hypertension; I35.9 Nonrheumatic aortic valve disorder, unspecified; I05.9 Rheumatic mitral valve disease, unspecified | CPT/HCPCS: 99212 ==